=== PATIENT | male | born 1990 | race Two or more races ===

== ENCOUNTER 2022-11-15 06:45 | Inpatient (IN) | payer OTHER ==
[~2022-11-15] VITALS: Ht 172.7 cm; Wt 68.5 kg
[2022-11-15 07:58] LABS: BASOPHILS % (AUTO) 0.5 % (0.0-2.0); EOSINOPHILS % (AUTO) 1.1 % (1.0-6.0); HEMATOCRIT 41.4 % (41-53); HEMOGLOBIN 14.4 g/dL (13.5-17.5); LYMPHOCYTES # (AUTO) 1.9 K/uL (1.0-4.8); LYMPHOCYTES % (AUTO) 22.1 % (22.0-44.0); MEAN CORPUSCULAR HEMOGLOBIN 30.1 pg (26.0-34.0); MEAN CORPUSCULAR HGB CONC 34.7 G/dL (31.0-37.0); MEAN CORPUSCULAR VOLUME 87 fL (80-100); MONOCYTES # (AUTO) 0.4 K/uL (0.1-1.0); MONOCYTES % (AUTO) 5.1 % (2.0-9.0); NEUTROPHILS # (AUTO) 6.2 K/uL (1.8-7.7); NEUTROPHILS % (AUTO) 71.2 % (40.0-70.0); PLATELET COUNT (AUTO) 285 K/uL (150-450); RED BLOOD CELL COUNT(AUTO) 4.77 MIL/uL (4.50-5.90); RED CELL DISTRIBUTION WIDTH 13.2 % (11.5-14.5)
[2022-11-15 08:01] LABS: ANION GAP 7 mmol/L (8-16); CALCIUM, TOTAL 9.4 mg/dL (8.8-10.5); CARBON DIOXIDE 28 mmol/L (22-29); CHLORIDE 103 mmol/L (98-107); CREATININE 0.93 mg/dL (0.60-1.30); GLOMERULAR FILTR. RATE CALC > 60 mL/min (>60); GLUCOSE,RANDOM 108 mg/dL (70-110); POTASSIUM 3.2 mmol/L (3.5-5.1); SODIUM SERUM 138 mmol/L (136-145)
[2022-11-15 08:14] LABS: INR 1.1 (0.9-1.1)
[2022-11-15 08:15] LABS: B-TYPE NATRIURETIC PEPTIDE 14 pg/mL (0-100)
[2022-11-15 08:29] LABS: ALANINE AMINOTRANSFERASE 20 U/L (12-78); ALKALINE PHOSPHATASE 117 U/L (46-116); ASPARTATE AMINOTRANSFERASE 19 U/L (15-37); BILIRUBIN,TOTAL 0.7 mg/dL (0.1-1.0); CREATINE KINASE, TOTAL ONLY 110 U/L (39-308); TOTAL PROTEIN, SERUM 8.9 g/dL (6.4-8.2)
[2022-11-15 13:14] LABS: APPEARANCE,URINE CLEAR (CLEAR); BILIRUBIN,URINE NEGATIVE (NEGATIVE); GLUCOSE, URINE (UA) NEGATIVE (NEGATIVE); KETONES,URINE 40-60 mg/dL (NEGATIVE); LEUKOCYTE ESTERASE ,URINE TRACE (NEGATIVE); NITRATE,URINE NEGATIVE (NEGATIVE); OCCULT BLOOD,URINE NEGATIVE (NEGATIVE); PROTEIN,URINE TRACE mg/dL (NEGATIVE); SPECIFIC GRAVITIY, URINE 1.025 (1.003-1.030); UROBILINOGEN,URINE <=1.0 mg/dL (<=1.0)
[2022-11-15 13:15] VITALS: BP 121/72
[2022-11-15 13:20] LABS: AMPHET/METH SCREEN,URINE NEGATIVE (NEGATIVE); BARBITURATE SCREEN, URINE NEGATIVE (NEGATIVE); BENZODIAZEPINES SCREEN,URINE NEGATIVE (NEGATIVE); CANNABINOID SCREEN,URINE NEGATIVE (NEGATIVE); COCAINE SCREEN,URINE NEGATIVE (NEGATIVE); METHADONE SCREEN, URINE NEGATIVE (NEGATIVE); OPIATE SCREEN,URINE POSITIVE (NEGATIVE); PHENCYCLIDINE SCREEN,URINE NEGATIVE (NEGATIVE)
[2022-11-15 13:25] LABS: RBC,URINE None Seen /HPF (0-2)
[2022-11-15 13:26] LABS: BACTERIA,URINE Rare /HPF (None Seen)
[2022-11-15] MEDS ORDERED: BISACODYL 10 MG RECTAL RECTAL SUPPOSITORY PR PRN (14:15)
[2022-11-15] MEDS ORDERED: LOPERAMIDE HCL 2 MG/15 ML SUSPENSION UDCUP PO PRN (14:15)
[2022-11-15] MEDS ORDERED: DICYCLOMINE HCL 10 MG CAPSULE PO PRN (14:15)
[2022-11-15] MEDS ORDERED: HydrOXYzine PAMOATE 50 MG CAPSULE PO PRN (14:15)
[2022-11-15] MEDS ORDERED: CloNIDine HCL 0.1 MG TABLET PO PRN (14:15)
[2022-11-15] MEDS ORDERED: PROMETHAZINE HCL 25 MG TABLET PO PRN (14:15)
[2022-11-15] MEDS ORDERED: IBUPROFEN 600 MG TABLET PO PRN (14:15)
[2022-11-15] MEDS ORDERED: BACLOFEN 10 MG TABLET PO PRN (14:15)
[2022-11-15] MEDS ORDERED: IPRATROPIUM BROMIDE 0.5 MG/2.5 ML NEB SOLUTION NEB PRN (14:15)
[2022-11-15] MEDS ORDERED: TraZODone HCL 50 MG TABLET PO PRN (14:15)
[2022-11-15] MEDS ORDERED: MAG HYDROX/AL HYDROX/SIMETH ES 30 ML SUSPENSION UDCUP PO PRN (14:15)
[2022-11-15] MEDS ORDERED: ONDANSETRON HCL 4 MG/2 ML VIAL IVP PRN (14:15)
[2022-11-15] MEDS ORDERED: ALBUTEROL SULFATE 2.5 MG/0.5 ML NEB SOLUTION NEB PRN (14:15)
[2022-11-15] MEDS ORDERED: MAGNESIUM HYDROXIDE SUSPENSION 30 ML UDCUP PO PRN (14:15)
[2022-11-15] MEDS ORDERED: LORazepam 1 MG TABLET PO PRN (14:15)
[2022-11-15] MEDS ORDERED: ACETAMINOPHEN 325 MG TABLET PO PRN ×2 (14:15)
[2022-11-15] MEDS: SODIUM CHLORIDE 0.45% 1,000 ML IV SCH (16:20)
[2022-11-15] MEDS: HEPARIN SODIUM,PORCINE 5,000 UNITS/ML VIAL SQ SCH ×2 (16:21→23:06)
[2022-11-15 19:50] VITALS: BP 121/84
[2022-11-15] MEDS: DOCUSATE SODIUM 100 MG CAPSULE PO SCH (20:23)
[2022-11-15] MEDS: ZOLPIDEM TARTRATE 5 MG TABLET PO PRN (23:10)
[2022-11-16 04:40] VITALS: BP 126/78
[2022-11-16] MEDS: SODIUM CHLORIDE 0.45% 1,000 ML IV SCH ×2 (04:45→19:03)
[2022-11-16 07:55] VITALS: BP 119/85
[2022-11-16] MEDS: DOCUSATE SODIUM 100 MG CAPSULE PO SCH ×2 (09:00→21:00)
[2022-11-16] MEDS: PANTOPRAZOLE SODIUM 40 MG DR TABLET PO SCH (09:08)
[2022-11-16] MEDS: HEPARIN SODIUM,PORCINE 5,000 UNITS/ML VIAL SQ SCH ×3 (09:08→23:06)
[2022-11-16 15:17] VITALS: BP 120/80
[2022-11-16 21:00] VITALS: BP 134/70
[2022-11-16] MEDS: ZOLPIDEM TARTRATE 5 MG TABLET PO PRN (23:06)
[2022-11-17 04:22] VITALS: BP 129/72
[2022-11-17 08:00] VITALS: BP 128/81
[2022-11-17] MEDS: HEPARIN SODIUM,PORCINE 5,000 UNITS/ML VIAL SQ SCH ×3 (08:00→23:24)
[2022-11-17] MEDS: DOCUSATE SODIUM 100 MG CAPSULE PO SCH (09:00)
[2022-11-17] MEDS: SODIUM CHLORIDE 0.45% 1,000 ML IV SCH (09:57)
[2022-11-17] MEDS: PANTOPRAZOLE SODIUM 40 MG DR TABLET PO SCH (09:57)
[2022-11-17 16:17] VITALS: BP 112/70
[2022-11-17] MEDS ORDERED: POTASSIUM CHL 10 MEQ/WATER 50 ML IV PRN (19:45)
[2022-11-17] MEDS ORDERED: POTASSIUM CHLORIDE 20 MEQ ER TABLET PO PRN (19:45)
[2022-11-17 20:15] VITALS: BP 124/75
[2022-11-17] MEDS: ZOLPIDEM TARTRATE 5 MG TABLET PO PRN (23:24)
[2022-11-18 04:50] VITALS: BP 128/73
[2022-11-18 07:35] VITALS: BP 118/72
[2022-11-18] MEDS: HEPARIN SODIUM,PORCINE 5,000 UNITS/ML VIAL SQ SCH ×2 (08:00→15:30)
[2022-11-18] MEDS: PANTOPRAZOLE SODIUM 40 MG DR TABLET PO SCH (08:27)
[2022-11-18] MEDS: SODIUM CHLORIDE 0.45% 1,000 ML IV SCH ×2 (08:28→10:19)
[2022-11-18 12:35] VITALS: BP 123/84
[2022-11-18 15:32] VITALS: BP 122/82
[2022-11-18 16:29] VITALS: BP 123/82
== END 2022-11-18 18:44 | DRG 897 ==
LOC: EMS 06:50 → AHU 11:19 → UNDOADMIN 11:19 → 6S 12:45
PROVIDERS: ADMIT Internal Medicine; ATTEND Internal Medicine
DX: F11.13 Opioid abuse with withdrawal (principal); E87.6 Hypokalemia; F15.10 Other stimulant abuse, uncomplicated
CPT/HCPCS: 71045; 80053; 80307; 81001; 82550; 83880; 84132; 84484; 85025; 85610; 85730; 87086; 87186; 93005; 99285; G0480; J1644; J2405; 36415-L1; 36415-TC